=== PATIENT | female | born 1985 | race American Indian/Alaskan Native ===

== ENCOUNTER 2020-01-09 06:09 | Day surgery (SDC) | payer BC ==
[~2020-01-09 06:09] MED LIST: LACTATED RINGERS 1,000 ML IV SCH; MIDAZOLAM 2 MG/2 ML INJ IV NR; SCOPOLAMINE TRANSDERMAL PATCH 72 HR TD NR
[2020-01-09] MEDS ORDERED: BACTERIOSTATIC SODIUM CHLORIDE 0.9% 30 ML VIAL INFILTRATI ONE (06:51)
--- NOTE | 2020-01-09 07:26 | Anesthesia Day of Surgery ---
Anesthesia Day of Surgery - Day of Surgery Patient Examined: Yes Patient H&P Reviewed: Yes Patient is NPO: Yes
--- NOTE | 2020-01-09 07:26 | Anesthesia Consultation ---
Anesthesia Consult and Med Hx Date of service: 01/09/20 - Airway Anesthetic Teeth Evaluation: Good ROM Head & Neck: Adequate Mental/Hyoid Distance: Adequate Mallampati Class: Class II Intubation Access Assessment: Probably Good - Pre-Operative Health Status ASA Pre-Surgery Classification: ASA2 Proposed Anesthetic Plan: General - Pulmonary Hx Smoking: Yes (QUIT 2017) Hx Asthma: Yes (SEASONAL- POLLEN) Hx Sleep Apnea: No (OSMEL PRE SCREEN NEGATIVE) - Cardiovascular System Hx Hypertension: No - Central Nervous System Hx Back Pain: Yes (CHRONIC PAIN LOWER BACK) Hx Psychiatric Problems: Yes - Endocrine Hx Renal Disease: Yes (kidney stones) Hx Hypothyroidism: No - Hematic Hx Anemia: Yes Hx Sickle Cell Disease: No - Other Systems Hx Alcohol Use: Yes (RARE- VODKA) Hx Substance Use: No Hx Cancer: No
[2020-01-09] MEDS ORDERED: propofoL 200 MG/20 ML VIAL IV ONE (07:48)
[2020-01-09] MEDS ORDERED: LIDOCAINE MPF (2%) 20 MG/1 ML VIAL 5 ML ONE (07:48)
[2020-01-09] MEDS ORDERED: fentaNYL 100 MCG/2 ML INJ ONE (07:48)
[2020-01-09] MEDS ORDERED: ceFAZolin/STERILE WATER 2 GM/20 ML SYRINGE IV NR (08:00)
[2020-01-09] MEDS ORDERED: fentaNYL 100 MCG/2 ML INJ IV PRN (08:30)
--- NOTE | 2020-01-09 08:53 | Short Stay Summary ---
Short Stay Documentation Date of service: 01/09/20 - History H&P: obtained from office - Allergies and Medications Current Medications: Allergies No Known Allergies Allergy (Verified 12/30/19 17:08) Home Medications Medication Instructions Recorded Confirmed Last Taken Type Norgestimate-Ethinyl Estradiol 1 tab PO DAILY 12/30/19 01/09/20 01/08/20 History [Tri-Sprintec Tablet] Active Medications Cefazolin Sodium (Ancef/Sterile Water 2 Gm/20 Ml) 2 gm IV PREOP NR Stop: 01/09/20 13:00 Fentanyl (Sublimaze) 50 mcg IV Q5MIN PRN PRN Reason: Pain , Severe (7-10) Stop: 01/09/20 20:00 Lactated Ringer's (Lactated Ringers) 1,000 mls @ 100 mls/hr IV DIRECT BETHANY Last Admin: 01/09/20 07:25 Dose: 100 mls/hr Documented by: Midazolam HCl (Versed) 2 mg IV PREOP NR Stop: 01/09/20 23:59 Last Admin: 01/09/20 07:30 Dose: 2 mg Documented by: Scopolamine (Transderm-Scop) 1 each TD PREOP NR Stop: 01/09/20 23:59 Last Admin: 01/09/20 07:15 Dose: 1 each Documented by: - Brief post op/procedure progress note Date of procedure: 01/09/20 Pre-op diagnosis: left renal stone Post-op diagnosis: same Procedure: left eswl Anesthesia: GETA Surgeon: SHONA HAMMER Estimated blood loss: none Condition: stable - Hospital course Hospital course: ramya de luna,post op info on chart - Disposition Condition at discharge: Stable Disposition: DC-01 TO HOME OR SELFCARE Short Stay Discharge Plan Follow up with: PRIMARY CARE, [Primary Care Provider] - 7 Days
--- NOTE | 2020-01-09 09:03 | Operative Report ---
PREOPERATIVE DIAGNOSIS: Left renal stone, 7 mm. POSTOPERATIVE DIAGNOSIS: Left renal stone, 7 mm. PROCEDURE: Extracorporal shock wave lithotripsy. SURGEON: Malcolm Mc MD ANESTHESIA: General. ESTIMATED BLOOD LOSS: Minimal. FLUIDS: Crystalloid. COMPLICATIONS: No complications. INDICATIONS: This patient is a 34-year-old female seen by Dr. Geronimo, left flank pain. CT of abdomen and pelvis revealed a 7 mm stone. Discussed options with the patient and her father. They agreed to proceed with surgical intervention. Risks, benefits, and complications were explained. PROCEDURE: The patient was taken to the operative suite, placed in a supine position. After adequate general anesthesia, the stone was localized in 2 planes using fluoroscopy. Extracorporal shock wave lithotripsy was administered in maximum kV of 8, 2500 shocks. A 5-minute renal pause after 200 shocks was performed. Adequate fragmentation could be appreciated. The patient tolerated the procedure well. She was extubated and taken to recovery room. She will go home on [place]. She will be given a strainer and follow up in the office with Dr. Geronimo. JOB# [id number] C/NTS
[2020-01-09 09:40] VITALS: BP 126/79
--- NOTE | 2020-01-09 12:16 | Post Anesthesia Evaluation ---
- Post Anesthesia Evaluation Patient Participated: Yes Airway Patent: Yes Stable Respiratory Function: Yes Nausea/Vomiting: No Temp > 96.8F: Yes Pain Manageable: Yes Adequeate Hydration: Yes Anesthesia Complications: No
== END 2020-01-09 10:15 | disposition home or self-care (01) ==
LOC: OR 06:09
PROVIDERS: ATTEND Urology
DX: N20.0 Calculus of kidney (principal); G43.909 Migraine, unspecified, not intractable, without status migrainosus; J45.909 Unspecified asthma, uncomplicated; K21.9 Gastro-esophageal reflux disease without esophagitis; M19.90 Unspecified osteoarthritis, unspecified site; F41.9 Anxiety disorder, unspecified; D64.9 Anemia, unspecified; Z98.890 Other specified postprocedural states; Z87.891 Personal history of nicotine dependence; Z79.899 Other long term (current) drug therapy; Z72.89 Other problems related to lifestyle
CPT/HCPCS: 50590; 81025; J0690; J2250; J2704; J3010; J7120

== ENCOUNTER 2020-01-15 14:13 | Emergency (ER) | payer BC ==
[2020-01-15 15:36] VITALS: BP 129/75
[2020-01-15 16:26] LABS: Bilirubin,Urine NEG (Negative); Blood,Urine LG (Negative); Color,Urine Amber (Yellow); Hyaline Casts,Urine 1 /LPF; Mucus,Urine 3+ /HPF
[2020-01-15 16:34] LABS: Basophils # (Auto) 0.1 K/mm3 (0.0-0.1); Eosinophils # (Auto) 0.1 K/mm3 (0.0-0.4); Eosinophils % (Auto) 1.1 % (0.0-4.3); Hematocrit 45.7 % (30.3-42.9); Lymphocytes # (Auto) 1.6 K/mm3 (1.2-5.4); Lymphocytes % (Auto) 27.8 % (13.4-35.0); Mean Corpuscular HGB Conc 33 % (30-34); Mean Corpuscular Volume 85 fl (79-97); Monocytes # (Auto) 0.5 K/mm3 (0.0-0.8); Platelet Count 274 K/mm3 (140-440); Red Blood Count 5.41 M/mm3 (3.65-5.03); Red Cell Distribution Width 12.9 % (13.2-15.2)
[2020-01-15 16:39] LABS: Alanine Aminotransferase 21 units/L (7-56); BUN/Creatinine Ratio 20; Blood Urea Nitrogen 14 mg/dL (7-17); Calcium 9.6 mg/dL (8.4-10.2); Hemolysis Index 42
== END 2020-01-15 19:50 | disposition left against medical advice (07) ==
LOC: ED 14:13
DX: R11.2 Nausea with vomiting, unspecified (principal); Z53.21 Procedure and treatment not carried out due to patient leaving prior to being seen by health care provider
CPT/HCPCS: 36415; 80053; 81001; 83690; 85025; 87086